=== PATIENT | female | born 1955 | race Caucasian/White ===

== ENCOUNTER 2017-01-30 23:19 | Emergency (ER) | payer OTHER ==
--- NOTE | 2017-01-30 23:29 | ED GI/GU/ABDOMINAL COMPLAINT ---
History of Present Illness General Chief Complaint: General Adult Stated Complaint: VOMITING Source: patient Exam Limitations: no limitations Vital Signs & Intake/Output Vital Signs & Intake/Output Vital Signs Date Time Temp Pulse Resp B/P Pulse O2 O2 Flow FiO2 Ox Delivery Rate 01/31 1039 98.8 76 18 143/65 98 Room Air 01/31 0207 133/60 01/31 0138 97.2 65 20 184/89 98 Room Air 01/30 2324 96.9 87 24 176/94 97 Room Air ED Intake and Output 01/31 0000 01/30 1200 Intake Total Output Total Balance Patient 200 lb Weight Allergies Coded Allergies: promethazine (From [facility]) (01/31/17) Triage Note: PER PT VOMITING AND DIARRHEA X SEVERAL HRS DX WITH PLEURISY ON DAY 4 OF Z-QUINTIN AND STEROID Triage Nurses Notes Reviewed? yes ? n Is pt currently ? No Onset: Gradual Duration: hour(s): Timing: recent history Quality/Severity: cramping Location: epigastric Radiation: no radiation Activities at Onset: none Prior Abdominal Problems: similar symptoms Modifying Factors: Worsens With: vomiting. Associated Symptoms: abdominal pain, nausea/vomiting HPI: 61-year-old woman, history of diabetes and hypertension, presents with several hours of vomiting nausea and diarrhea. She states that her symptoms began after lunch. They have progressed over the course of the evening. She notes that she has been on steroids and zithromycin for "pleurisy." She notes no abdominal pain, fever, dysuria, chest pain, shortness of breath. She is uncertain of the etiology of her symptoms. (JOSE GIBSON,DEREJE [place]) Reconcile Medications Ondansetron (Zofran Odt) 4 MG TAB.RAPDIS 1 TAB SL TID PRN nausea (TORRES GIBSON,YAHIR) Past History Travel History Traveled to [place] past 21 day No Medical History Any Pertinent Medical History? see below for history Neurological: NONE EENT: NONE Cardiovascular: hypertension Respiratory: PLEURISY Gastrointestinal: NONE Hepatic: NONE Renal: NONE Musculoskeletal: NONE Psychiatric: NONE Endocrine: IDDM, THYROPID Tetanus Vaccine: 03/21/12 Surgical History Surgical History: none Psychosocial History What is your primary language Spanish Tobacco Use: Never used Family History Hx Contributory? No (JOSE GIBSON,DEREJE [place]) Review of Systems Review of Systems Constitutional: Reports: no symptoms. EENTM: Reports: no symptoms. Respiratory: Reports: no symptoms. Cardiovascular: Reports: no symptoms. GI: Reports: no symptoms. Genitourinary: Reports: no symptoms. Musculoskeletal: Reports: no symptoms. Skin: Reports: no symptoms. Neurological/Psychological: Reports: no symptoms. Hematologic/Endocrine: Reports: no symptoms. Immunologic/Allergic: Reports: no symptoms. All Other Systems: Reviewed and Negative (JOSE GIBSON,DEREJE [place]) Physical Exam Physical Exam General Appearance: well developed/nourished, mild distress, moderate distress Head: atraumatic, normal appearance Eyes: Bilateral: normal appearance. Ears, Nose, Throat, Mouth: hearing grossly normal Neck: normal inspection, supple, full range of motion, normal alignment Respiratory: normal breath sounds, chest non-tender, no respiratory distress, quiet respiration, lungs clear Cardiovascular: regular rate/rhythm Gastrointestinal: normal bowel sounds, soft, non-tender, no organomegaly Back: normal inspection, normal range of motion Extremities: normal range of motion Neurologic/Psych: no motor/sensory deficits, awake, alert, oriented x 3 Skin: intact, normal color, warm/dry Core Measures ACS in differential dx? No Severe Sepsis Present: No Septic Shock Present: No (JOSE GIBSON,DEREJE [place]) Progress Differential Diagnosis: gastroenteritis versus obstruction versus diverticulitis versus other. Plan of Care: Orders Procedure Date/time Status CULTURE,URINE 01/31 1021 Active Add-on Test (ER Only) 01/31 0921 Active Add-on Test (ER Only) 01/31 0605 Active TROPONIN LEVEL 01/31 0500 Complete LIPASE 01/31 0500 Complete HEPATIC FUNCTION PANEL 01/31 0500 Complete CBC WITHOUT DIFFERENTIAL 01/31 0500 Complete BASIC METABOLIC PANEL 01/31 0500 Complete AMYLASE 01/31 0500 Complete EKG 01/31 0500 Active URINALYSIS 01/31 0347 Complete TROPONIN LEVEL 01/30 2329 Complete LIPASE 01/30 2329 Complete HEPATIC FUNCTION PANEL 01/30 2329 Complete CBC WITHOUT DIFFERENTIAL 01/30 2329 Complete BASIC METABOLIC PANEL 01/30 2329 Complete AMYLASE 01/30 232 Complete EKG 01/30 2329 Active Laboratory Tests 01/31/17 0826: Urinalysis LIGHT H, Urine Color YEL, Urine Clarity HAZY H, Urine pH 6.0, Ur Specific [place] 1.025, Urine Protein TRACE H, Urine Ketones NEG, Urine Nitrite NEG, Urine Bilirubin NEG, Urine Urobilinogen 0.2, Ur Leukocyte Esterase SMALL H , Ur Microscopic SEDIMENT EXAMINED, Urine RBC RARE, Urine WBC 5-10 H, Ur Epithelial Cells MOD H, Urine Bacteria MANY H, Urine Mucus FEW, Urine Hemoglobin NEG, Urine Glucose NEG 01/31/17 0510: Anion Gap 9, Estimated GFR > 60, BUN/Creatinine Ratio 32.5 H, Glucose 175 H, Calcium 8.4, Total Bilirubin 0.7, Direct Bilirubin 0.4, AST 64 H, ALT 103 H, Alkaline Phosphatase 58, Troponin I < 0.01, Total Protein 6.1 L, Albumin 3.4 L , Amylase < 30 L, Lipase 67, CBC w Diff NO MAN DIFF REQ, RBC 4.60, MCV 95.2, MCH 31.2 H, RDW 13.5, MPV 9.1, Gran % 84.3 H, Lymphocytes % 6.4 L, Monocytes % 8.5, Eosinophils % 0.8, Basophils % 0 L, Absolute Granulocytes 9.0 H, Absolute Lymphocytes 0.7 L, Absolute Monocytes 0.9 H, Absolute Eosinophils 0.1 , Absolute Basophils 0, PUBS MCHC 32.8 L 01/30/17 2356: Anion Gap 14, Estimated GFR 56 L, BUN/Creatinine Ratio 29.0 H, Glucose 172 H, Calcium 10.2, Total Bilirubin 0.8, Direct Bilirubin 0.6 H, AST 68 H, ALT 108 H, Alkaline Phosphatase 79, Troponin I < 0.01, Total Protein 7.9, Albumin 4.6, Amylase 38, Lipase 93, CBC w Diff NO MAN DIFF REQ, RBC 5.25, MCV 93.9, MCH 31.7 H, RDW 13.1, MPV 9.8, Gran % 82.1 H, Lymphocytes % 10.6 L, Monocytes % 6.4, Eosinophils % 0.6, Basophils % 0.3, Absolute Granulocytes 13.9 H, Absolute Lymphocytes 1.8, Absolute Monocytes 1.1 H, Absolute Eosinophils 0.1, Absolute Basophils 0.1, PUBS MCHC 33.7 Microbiology 01/31 1022 URINE ROUT: Urine Culture - RECD 7:10 AM SIGNED OUT TO ME BY DR GARCIA. Pending U/S, surgical follow up. 9:30 US shows stones but no cholecystitis. Improved nausea, no abdominal pain on examination. PO challenge initiated. 10:30 Patient tolerated a small amount of clear liquids. Results of the ultrasound and CAT scan discussed in detail with the patient. She will follow up with Dr. Alvarado in the office. Patient feels her symptoms may have been related to normal virus which the whole family had had. I discussed this may be a possible presentation of gallbladder stones and she'll follow-up for possible elective cholecystectomy if that is the case. Patient instructed to return for worsening abdominal pain fever chills nausea vomiting. (TORRES GIBSON,YAHIR) Diagnostic Imaging: Viewed by Me: Radiology Read. Discussed w/RAD: Radiology Read. Radiology Impression: abd/pelvic ct.... gall stones... full report below. Initial ED EKG: normal axis, normal intervals, normal p-waves, normal QRS complex, normal sinus rhythm Repeat EKG: unchanged Hand-Off Endorsed To: YAHIR MITCHELL MD Endorsed Time: 0700 Pending: ultrasound Comments: PATIENT: PRITESH DUTTA PRESENT AGE: 61 PATIENT ACCOUNT NO: [id number] : 55 LOCATION: [facility] ORDERING PHYSICIAN: DEREJE GARCIA MD SERVICE DATE: 01/31/17 EXAM TYPE: CAT - CT ABD & PELVIS W/O IV CONTRAS EXAMINATION: CT ABDOMEN AND PELVIS WITHOUT CONTRAST CLINICAL INFORMATION: Abdominal pain, nausea, elevated white blood cell count COMPARISON: None TECHNIQUE: Multidetector volumetric imaging was performed from the superior aspect of the liver through the pubic symphysis. Sagittal and coronal reformatted images were obtained on the technologist's workstation. DLP: 8-7.96 mGy-cm FINDINGS: LUNG BASES: The visualized lung bases are unremarkable. LIVER, GALLBLADDER, AND BILIARY TREE: The liver is normal in size, shape, and attenuation. No focal hepatic lesion or biliary ductal dilatation is present. Cholelithiasis is noted without additional suspicious findings for cholecystitis. PANCREAS: Unremarkable. SPLEEN: Unremarkable. ADRENAL GLANDS: Unremarkable. KIDNEYS AND URETERS: The kidneys are normal in size, shape, and attenuation. No hydronephrosis, hydroureter, or calculi seen. No perinephric stranding. BLADDER: Unremarkable. GASTROINTESTINAL TRACT: The small and large bowel are unremarkable. The appendix is unremarkable. ABDOMINAL WALL: No significant hernia is appreciated. LYMPH NODES: Normal. VASCULAR: There is atherosclerotic calcification along the aorta. PELVIC VISCERA: Unremarkable. OSSEOUS STRUCTURES: Degenerative changes are noted in the spine. IMPRESSION: 1. No acute findings identified in the abdomen/pelvis. 2. Cholelithiasis. DICTATED BY: JAKE MORGAN MD DATE/TIME DICTATED:01/31/17204 BEAD FORMING MACHINE OPERATOR:TOLBERT DATE/TIME TRANSCRIBED:01/31/17204 CONFIDENTIAL, DO NOT COPY WITHOUT APPROPRIATE AUTHORIZATION. <Electronically signed in Other Vendor System> SIGNED BY: JAKE MORGAN MD 01/31/17213 (JOSE GIBSON,DEREJE [place]) Diagnostic Imaging: Viewed by Me: Ultrasound. Discussed w/RAD: Ultrasound. Radiology Impression: PATIENT: PRITESH DUTTA PRESENT AGE: 61 PATIENT ACCOUNT NO: [id number] : 55 LOCATION: [facility] ORDERING PHYSICIAN: DEREJE GARCIA MD SERVICE DATE: 01/31/17 EXAM TYPE: US - US-LIMITED ABDOMEN EXAMINATION: US ABDOMEN LIMITED CLINICAL INFORMATION: Right upper quadrant pain, nausea and vomiting; question cholecystitis. COMPARISON: None. TECHNIQUE: Real-time imaging of the right upper quadrant abdominal viscera. FINDINGS: PANCREAS: Normal. LIVER: Normal. The liver demonstrates normal size, contour and echogenicity. No focal lesion or intrahepatic biliary duct dilatation. GALLBLADDER: There are 2.7 cm and 1.9 cm gallstones. The gallbladder is physiologically distended without evidence of sludge, polyps, wall thickening or pericholecystic fluid. COMMON BILE DUCT: Normal in caliber measuring 0.6 cm in diameter. RIGHT KIDNEY: Normal. No hydronephrosis. No renal calculi or focal parenchymal lesions. The kidney measures 10.4 cm in maximum dimension. FREE FLUID: None. IMPRESSION: There is cholelithiasis, without cholecystitis or choledocholithiasis. DICTATED BY: GORGE JUNG MD DATE/TIME DICTATED:01/31/17902 BEAD FORMING MACHINE OPERATOR:TOLBERT DATE/ TIME TRANSCRIBED:01/31/17902 CONFIDENTIAL, DO NOT COPY WITHOUT APPROPRIATE AUTHORIZATION. <Electronically signed in Other Vendor System> SIGNED BY: GORGE JUNG MD 01/31/17906 (YAHIR MITCHELL MD) Departure Departure Condition: Stable Clinical Impression Primary Impression: Nausea and vomiting Departure Forms: Customer Survey General Discharge Information Comments 01/31/17, 3:20am...Pt received zofran 4mg iv, phenergan approx 12.5 mg before having a dysphoric reaction, zofran 4mg iv, and then reglan 10mg iv... ct scan with gallstones, discussed with Dr. Julio and surgical PA... pt to have u/s in AM... will repeat labs and ekg. 01/31/17, pt resting comfortably... improved wbc count on repeat draw... u/s pending... pt signed out to dr. mitchell at 7am. (JOSE GIBSON,DEREJE [place]) Departure Time of Disposition: 1034 Disposition: HOME OR SELF CARE Referrals: YASMEEN GIBSON,JOEL Perez (PCP/Family) HARIS GIBSON,XI Carbajal Additional Instructions: Take the zofran as needed for nausea and follow up with the surgeon listed. Return to the ER for any changing or worsening symptoms. Prescriptions: Current Visit Scripts Ondansetron (Zofran Odt) 1 TAB SL TID PRN nausea #10 TAB Ref 1 (TORRES GIBSON,YAHIR)
[2017-01-31 00:02] LABS: ABSOLUTE BASOPHIL COUNT 0.1 /CUMM (0.0-0.2); ABSOLUTE EOSINOPHIL COUNT 0.1 /CUMM (0.0-0.7); ABSOLUTE GRANULOCYTE CT 13.9 /CUMM (1.4-6.5); ABSOLUTE LYMPH COUNT 1.8 /CUMM (1.2-3.4); ABSOLUTE MONOCYTE COUNT 1.1 /CUMM (0.10-0.60); BASOPHIL % 0.3 % (0.0-2.0); EOSINOPHIL % 0.6 % (0-5); GRANULOCYTE % 82.1 % (42.2-75.2); HEMATOCRIT 49.3 % (37-47); MEAN CORPUSCULAR HGB 31.7 PG (27.0-31.0); MEAN CORPUSCULAR HGB CONC 33.7 G/DL (33.0-37.0); MEAN CORPUSCULAR VOLUME 93.9 FL (81.0-99.0); MEAN PLATELET VOLUME 9.8 FL (7.4-10.4); PLATELET COUNT 230 /CUMM (130-400); RBC DISTRIBUTION WIDTH 13.1 % (11.5-14.5); RED BLOOD CELL CT 5.25 /CUMM (4.20-5.40)
--- NOTE | 2017-01-31 02:14 | CT SCAN REPORT ---
EXAMINATION: CT ABDOMEN AND PELVIS WITHOUT CONTRAST CLINICAL INFORMATION: Abdominal pain, nausea, elevated white blood cell count COMPARISON: None TECHNIQUE: Multidetector volumetric imaging was performed from the superior aspect of the liver through the pubic symphysis. Sagittal and coronal reformatted images were obtained on the technologist's workstation. DLP: 8-7.96 mGy-cm FINDINGS: LUNG BASES: The visualized lung bases are unremarkable. LIVER, GALLBLADDER, AND BILIARY TREE: The liver is normal in size, shape, and attenuation. No focal hepatic lesion or biliary ductal dilatation is present. Cholelithiasis is noted without additional suspicious findings for cholecystitis. PANCREAS: Unremarkable. SPLEEN: Unremarkable. ADRENAL GLANDS: Unremarkable. KIDNEYS AND URETERS: The kidneys are normal in size, shape, and attenuation. No hydronephrosis, hydroureter, or calculi seen. No perinephric stranding. BLADDER: Unremarkable. GASTROINTESTINAL TRACT: The small and large bowel are unremarkable. The appendix is unremarkable. ABDOMINAL WALL: No significant hernia is appreciated. LYMPH NODES: Normal. VASCULAR: There is atherosclerotic calcification along the aorta. PELVIC VISCERA: Unremarkable. OSSEOUS STRUCTURES: Degenerative changes are noted in the spine. IMPRESSION: 1. No acute findings identified in the abdomen/pelvis. 2. Cholelithiasis.
[2017-01-31 05:25] LABS: ABSOLUTE BASOPHIL COUNT 0 /CUMM (0.0-0.2); ABSOLUTE EOSINOPHIL COUNT 0.1 /CUMM (0.0-0.7); ABSOLUTE LYMPH COUNT 0.7 /CUMM (1.2-3.4); ABSOLUTE MONOCYTE COUNT 0.9 /CUMM (0.10-0.60); BASOPHIL % 0 % (0.0-2.0); EOSINOPHIL % 0.8 % (0-5); GRANULOCYTE % 84.3 % (42.2-75.2); MEAN CORPUSCULAR HGB 31.2 PG (27.0-31.0); MEAN CORPUSCULAR HGB CONC 32.8 G/DL (33.0-37.0); MEAN CORPUSCULAR VOLUME 95.2 FL (81.0-99.0); MEAN PLATELET VOLUME 9.1 FL (7.4-10.4); PLATELET COUNT 158 /CUMM (130-400); RBC DISTRIBUTION WIDTH 13.5 % (11.5-14.5)
[2017-01-31 05:26] LABS: HEMATOCRIT 43.8 % (37-47)
[2017-01-31 05:34] LABS: WHITE BLOOD CELL COUNT 10.6 /CUMM (4.8-10.8)
[2017-01-31] MEDS ORDERED: ZOFRAN ODT4 M1 SL (06:40)
--- NOTE | 2017-01-31 09:07 | ULTRASOUND REPORT ---
EXAMINATION: US ABDOMEN LIMITED CLINICAL INFORMATION: Right upper quadrant pain, nausea and vomiting; question cholecystitis. COMPARISON: None. TECHNIQUE: Real-time imaging of the right upper quadrant abdominal viscera. FINDINGS: PANCREAS: Normal. LIVER: Normal. The liver demonstrates normal size, contour and echogenicity. No focal lesion or intrahepatic biliary duct dilatation. GALLBLADDER: There are 2.7 cm and 1.9 cm gallstones. The gallbladder is physiologically distended without evidence of sludge, polyps, wall thickening or pericholecystic fluid. COMMON BILE DUCT: Normal in caliber measuring 0.6 cm in diameter. RIGHT KIDNEY: Normal. No hydronephrosis. No renal calculi or focal parenchymal lesions. The kidney measures 10.4 cm in maximum dimension. FREE FLUID: None. IMPRESSION: There is cholelithiasis, without cholecystitis or choledocholithiasis.
--- NOTE | 2017-01-31 10:07 | Event Note ---
Event Note Event Note: Patient seen by physician lead recreation assistant last night. Came to ED with complaints of nausea with wretching, vomiting, diarrhea. Has recent history of taking steroids and antibiotics for an upper respiratory illness. No complaints of abdominal pain. CT abd/pelvis peformed by ED revealed cholelithiasis. LFTs elevated initially with WBC of 17k. On exam per PA-C report from last night, AVSS. Patient did not have RUQ tenderness or Gillett sign. Epigastric tenderness noted. Repeat labwork revealed wbc 10k and LFTs without abnormality. PA-C from last night instructed to perform ultrasound of RUQ this morning. Results revealed cholelithiasis without evidence for cholecystitis, choledocholithiasis. CBD 0.[address] D[address] results [address] Dr. Alvarado. Not a surgical issue. Patient to be evaluated further by ED if clinical exam warrants. Please re-consult with questions/concerns.
[2017-01-31 10:39] VITALS: BP 143/65
== END 2017-01-31 10:40 ==
LOC: ERH 23:19
PROVIDERS: Pediatrics
DX: R11.2 Nausea with vomiting, unspecified (principal)
CPT/HCPCS: 74176; 81001; 87086; 93005; 93010; 96361; 96374; 96375; J2405; J2550; J2765